=== PATIENT | male | born 1975 | race Caucasian/White ===

== ENCOUNTER 2022-05-18 13:26 | Emergency (ER) | payer MEDICAID, SELFPAY ==
[2022-05-18 15:14] VITALS: BMI 29.5
[2022-05-18 15:17] VITALS: BP 154/103; PULSE 73; RESP 18; TEMP 36.5; O2SAT 98
--- NOTE | 2022-05-18 15:34 | ED_ITS ---
HPI - Wound/Laceration General: Chief Complaint: Wound/Laceration Stated Complaint: left leg cut by chainsaw Time Seen by Provider: 05/18/22 15:23 History of Present Illness: Patient is a 46-year-old male comes to the ED with a laceration to left lower leg. Patient says he was cutting down some trees and limbs. One of the limbs came down and hit lateral posterior aspect of patient's left lower leg causing a laceration. He denies any other injuries or trauma. Bleeding was controlled with a bandage. Patient is able to ambulate on left leg without any difficulties or pain. He has full range of motion of the left foot and ankle. He currently needs an updated tetanus shot. Associated symptoms: Denies chills, fever(s), nausea or vomiting Review of Systems Const: Denies: fever(s), chills or fatigue Eyes: Denies: change in vision or eye discomfort ENMT: Denies: throat pain, odynophagia, nasal discharge or nasal congestion Card: Denies: chest pain, palpitations, edema, swelling of feet/ankles, dyspnea on exertion or orthopnea Resp: Denies: dyspnea, productive cough or non-productive cough GI: Denies: abdominal pain, nausea, vomiting, diarrhea, constipation or hematochezia : Denies: flank pain, difficulty urinating, dysuria or hematuria Musc: Denies: neck pain, back pain or extremity swelling Skin/Breast: Reports: new lesions (Laceration to left lower leg); Denies: rash Neuro: Denies: headache(s), numbness in extremities or weakness in extremities [facility] ED PFSH: Medical History No pertinent family history Surgical History No pertinent past surgical history Physical Exam Const: COMMON NORMALS: no acute distress, patient oriented x3, healthy appearing and alert GENERAL APPEARANCE: cooperative and comfortable HENMT: COMMON NORMALS: normocephalic HEAD & SCALP: normocephalic MOUTH: Normal oral and palatal mucosa present THROAT: posterior oropharynx normal and uvula midline Neck/C-Spine: COMMON NORMALS: supple GENERAL: Yes normal visual inspection Resp: COMMON NORMALS: normal respiratory effort, No retractions, No use of accessory muscles and clear to auscultation bilaterally AUSCULTATION: clear to auscultation bilaterally Cardio: COMMON NORMALS: regular rate, regular rhythm, S1 normal heart sound present, S2 normal heart sound present, No gallops present (Cardio), No clicks present (Cardio), No murmurs present (Cardio) and Peripheral pulses 2+ thr oughout RATE: regular rate RHYTHM: regular rhythm HEART SOUNDS: S1 normal heart sound present and S2 normal heart sound present PERIPHERAL PULSES: Peripheral pulses 2+ throughout GI: COMMON NORMALS: Normal to inspection, nondistended, normoactive bowel sounds present, Soft to palpation, non-tender and no masses PALPATION: Yes Soft to palpation : COMMON NORMALS: Yes no CVA tenderness BLADDER/KIDNEY EXAM: Yes no CVA tenderness Back/Pelvis: COMMON NORMALS: no CVA tenderness Extremity: NARRATIVE EXTREMITY EXAM: large superficial irregular shaped laceration measuring approximately 7 cm on left lower leg. Minimal active bleeding noted. No contaminants seen. Full range of motion in foot and ankle. Neurovascular intact distally. Neuro: COMMON NORMALS: patient oriented x3 SENSORIUM/ORIENTATION: Yes alert GAIT: Yes Normal gait present Skin: GENERAL SKIN EXAM: dry skin Procedures Laceration Laceration 1: Site: lower extremity (left lower leg) Side (If applicable): left Size (cm): 7 Description: irregular and clean Depth: simple, single layer Local Anesthetic: lidocaine 1% and with epi Amount of anesthesia used (mL): 6 Pre-repair: irrigated extensively (With normal saline and beta iodine) Skin layer closed with: nylon Size (cm): 4-0 Number of sutures: 11 Technique: simple, interrupted (3 sutures) and running (8 running sutures were placed to close laceration as well.) Course Vital Signs: Vital signs: Vital Signs Temperature 97.7 F 05/18/22 15:17 Pulse Rate 73 05/18/22 15:17 Respiratory Rate 18 05/18/22 15:17 Blood Pressure 154/103 05/18/22 15:17 Pulse Oximetry 98 05/18/22 15:17 Oxygen Delivery Me thod 05/18/22 15:17 MDM - Wound/Laceration Medical Decision Making Patient is a 46-year-old male comes to the ED with a laceration to left lower leg. Patient says he was cutting down some trees and limbs. One of the limbs came down and hit lateral posterior aspect of patient's left lower leg causing a laceration. Vitals are stable. large superficial irregular shaped laceration measuring approximately 7 cm on left lower leg. Minimal active bleeding noted. No contaminants seen. Full range of motion in foot and ankle. Neurovascular intact distally. Left tib-fib x-ray showed no acute findings or foreign bodies noted. Lidocaine 1% with epi was used as local and nurse irrigated laceration extensively with normal saline and beta iodine. 11 sutures were then placed to close laceration site. See procedure note for details. He was given updated tetanus here in the ED. He was stable for discharge home and instructed to have sutures removed in the next 10 days. He was sent home with prophylactic antibiotic prescription. Return to ED precautions given. Patient understood and agreed with plan. Lab Data Radiology Impressions Tibia/Fibula X-Ray 05/18/22 15:37 IMPRESSION: No acute osseous abnormalities. No radiopaque foreign body. Discharge Plan Discharge Patient Disposition: Home Clinical Impression: Laceration of left leg Qualifiers: Encounter type: initial encounter Qualified Code(s): S81.812A - Laceration without foreign body, left lower leg, initial encounter Condition: Stable Prescriptions: New cephalexin 500 mg capsule 500 mg PO Q6H 4 Days Qty: 16 0RF Discharge Orders: Discharge ED (Routine); Ordered 05/18/22 Ordered By: Ruperto Herron Referrals: Brian Carter FNP [Primary Care Provider] - Discharge Diet: Regular Discharge Activity: Increase activity as tolerated Patient Instructions: Laceration (DC) Activity Restrictions/Additional Instructions: Take full course of antibiotics as prescribed. Keep laceration site clean and dry. Clean daily with soap and water and then apply thin layer of triple antibiotic ointment on it and cover with bandage. Watch for signs of infection such as redness, warmth, increased tenderness and puslike drainage. If you see the signs of infection return to the ED, urgent care or PCP for reevaluation. call your PCP to schedule a follow-up appointment for reevaluation and suture removal in about 10 days. Continue taking all home meds. Follow discharge plans as discussed. You can return to the ED if symptoms worsen. Coding Level of Care Code ED [employer] Operator for Siobhan Camacho Exam Comprehensive
--- NOTE | 2022-05-18 15:37 | XRR_ITS ---
PROCEDURE INFORMATION: Exam: XR Left Tibia and Fibula Exam date and time: 05/18/2022 4:02 PM Age: 46 years old Clinical indication: Injury or trauma; Other: Chainsaw; Laceration; Lower leg; Left; Foreign body involvement not specified; Additional info: Laceration injury to lower leg TECHNIQUE: Imaging protocol: Radiologic exam of the Left tibia and fibula. Views: 2 views. COMPARISON: No relevant prior studies available. FINDINGS: Bones/joints: Osseous structures are intact. Negative for fracture. Soft tissues: Laceration noted along the lower leg. No evidence of radiopaque foreign body. XR/XR tibia fibula LT 2V [id number] IMPRESSION: No acute osseous abnormalities. No radiopaque foreign body.
[2022-05-18] MEDS: tetanus-dipt-pertussis 0.5 mL SDV IM (16:00)
--- NOTE | 2022-05-31 12:46 | PC.NURSE ---
REMOVED 8 RUNNING STITCHES AND 3 SIMPLE SUTURES PER PROVIDER DIOR VO AND DRESSED WITH STERISTRIPS.
== END 2022-05-18 17:09 | disposition home or self-care (01) ==
PROVIDERS: Emergency Provider Physician Assistant; PCP Nurse Practitioner Family
DX: S81.812A Laceration without foreign body, left lower leg, initial encounter (principal); W20.8XXA Other cause of strike by thrown, projected or falling object, initial encounter; Z23 Encounter for immunization
CPT/HCPCS: 12002; 73590; 90471; 90715; 99283

== ENCOUNTER → 2023-03-17 10:54 | Outpatient (BNVA) | payer MEDICAID, SELFPAY | PROVIDERS: PCP Nurse Practitioner Family; Referring Provider Nurse Practitioner Occupational Health; Visit Provider Surgery | DX: Z01.812 Encounter for preprocedural laboratory examination (principal); K82.9 Disease of gallbladder, unspecified; Z51.81 Encounter for therapeutic drug level monitoring; Z79.1 Long term (current) use of non-steroidal anti-inflammatories (NSAID); R10.9 Unspecified abdominal pain; K76.0 Fatty (change of) liver, not elsewhere classified | CPT/HCPCS: 36415; 80048; 80076; 83690; 85025 ==

== ENCOUNTER 2023-04-05 09:52 | Outpatient (CLI) | payer MEDICAID, SELFPAY ==
--- NOTE | 2023-04-05 10:00 | NM_ITS ---
WS: [id number] NUCLEAR MEDICINE HIDA SCAN WITH GALLBLADDER EJECTION FRACTION HISTORY: gallbladder problem COMPARISON: None available. TECHNIQUE: The patient was intravenously injected with 7.7 mCi of TC99m Mebrofenin. Immediate imaging over the right upper quadrant was followed by 5 minute image and additional images for a total of 60 minutes. Normal uptake of radiotracer throughout the liver. Activity identified in the gallbladder at 15 minutes and well distended by 60 minutes. Activity in the proximal small bowel was seen by 40 minutes. Good washout of the radiotracer from the liver by 60 minutes. The patient then drank 8 ounces of Ensure Plus. Ejection fraction at 60 minutes was 79%. Normal GB ej ection fraction is 35-75%. Post fatty meal symptoms: None. IMPRESSION: 1. Normal HIDA scan. 2. Normal gallbladder ejection fraction.
== END 2023-04-05 09:53 | disposition home or self-care (01) ==
LOC: RAD 09:53
PROVIDERS: PCP Nurse Practitioner Family; Visit Provider Surgery
DX: Z01.812 Encounter for preprocedural laboratory examination (principal); K82.9 Disease of gallbladder, unspecified
CPT/HCPCS: 78227; A9537

== ENCOUNTER → 2023-04-10 11:58 | Outpatient (BNVA) | payer MEDICAID, SELFPAY | PROVIDERS: PCP Nurse Practitioner Family; Referring Provider Specialist; Visit Provider Specialist | DX: G61.82 Multifocal motor neuropathy (principal) | CPT/HCPCS: 83520 ==

== ENCOUNTER 2023-05-23 08:46 | Day surgery (SDC) | payer MEDICAID, SELFPAY ==
--- NOTE | 2023-05-23 09:03 | P.HPUD_ITS ---
Surgery/Procedure H&P Update DATE OF PROCEDURE: May 23, 2023 DATE H&P PERFORMED: 05/08/23 H&P UPDATE INFORMATION: I have reviewed H&P completed within last 30 days, I have examined patient prior to procedure, No changes to prior documentation and H&P is in [facility] EMR on date indicated PLANNED PROCEDURE: Operation Date: 05/23/23 10:00 Proposed Procedures p [id number] egd [id number] colon, G0121 screen colon A risk R10.9,Z12.11(Not Applicable) - Flaco Dai MD s Colonoscopy(Not Applicable) - Flaco Dai MD
[2023-05-23 09:08] VITALS: BP 116/89; PULSE 71; RESP 18; TEMP 36.6; O2SAT 98; BMI 28.2
--- NOTE | 2023-05-23 09:18 | P.ANESASSM_ITS ---
Pre-Anesthetic Assessment Height/Weight: Height 1.75 m Weight 86.636 kg Temp Pulse Resp BP Pulse Ox O2 Del Method 97.8 F 71 18 116/89 98 Room Air 05/23/23 09:08 05/23/23 09:08 05/23/23 09:08 05/23/23 09:08 05/23/23 09:08 05/23/23 09:08 Operation Date: 05/23/23 10:00 Proposed Procedures p 51283 egd 61671 colon, G0121 screen colon A risk R10.9,Z12.11(Not Applicable) - Flaco Dai MD s Colonoscopy(Not Applicable) - Flaco Dai MD Familial anesthetic complications: None Was Beta Nereida taken within 24 hours: N/A Was Clonidine taken within 24 hours: N/A Last intake: Intake Last Liquid Date 05/22/23 Last Liquid Time 22:00 Last Solid Date 05/22/23 Last Solid Time 07:45 Social Tobacco (chewed tobacco at 0800) and No alcohol Exam alert, oriented x 3, clear to auscultation bilaterally and regular rate & rhythm Airway Mallampati: Class II Dentition: full Comments: Comments: full sood Neuropsych Neuropathy Anesthetic Plan ASA status: 3 Anesthesia: MAC Risk of > 500 ml blood loss (7ml/kg in children): No Medications/Allergies Home Medications Medication Instructions Recorded Confirmed Last Taken Type aspirin 81 mg tablet,delayed 81 mg PO DAILY 03/17/23 05/19/23 05/18/23 History release (Adult Low Dose Aspirin) multivitamin 1 tab PO DAILY 03/17/23 05/19/23 05/22/23 History omeprazole magnesium 20 mg 20 mg PO DAILY 03/17/23 05/19/23 05/22/23 History tablet,delayed release (Prilosec OTC) loratadine-pseudoephedrine ER 10 1 tab PO DAILY 05/19/23 05/19/23 05/22/23 History mg-240 mg tablet,extended [id number] (Claritin-D 24 Hour) Allergies Allergy/AdvReac Type Severity Reaction Status Date / Time No Known Allergies Allergy Verified 05/19/23 12:37 [facility] Anesthesia Medical History No pertinent family history Surgical History No pertinent past surgical history Social History Smoking and tobacco/nicotine status: never used tobacco/nicotine Alcohol intake: former Data Anesthesia Cardiac Studies: No Data to Display
[2023-05-23] MEDS: sodium chloride 0.9% 1,000 ML 30 ML IV (11:39)
[2023-05-23 12:17] VITALS: BP 90/66; PULSE 56; RESP 18; TEMP 36.8; O2SAT 96
[2023-05-23 12:32] VITALS: BP 102/74; PULSE 61; RESP 18; O2SAT 96
--- NOTE | 2023-05-23 12:55 | ANE.PACU2 ---
Inpatient post-anesthesia follow up: Airway intact: Yes Vital signs: Temperature 98.2 F Pulse Rate 61 Respiratory Rate 18 Blood Pressure 102/74 Pulse Oximetry 96 Oxygen Delivery Me thod Room Air Oxygen Flow Rate Fraction of Inspir ed Oxygen Hydration adequate: Yes Nausea and vomiting: No Pain level: 1 Mental status: Baseline
== END 2023-05-23 12:59 | disposition home or self-care (01) ==
PROVIDERS: PCP Nurse Practitioner Family; Visit Provider Surgery
PROC: 0DJ08ZZ Inspection of Upper Intestinal Tract, Via Natural or Artificial Opening Endoscopic (ICD-10-PCS; CPT 43235; principal; 2023-05-23 10:00)
PROC: 0DJD8ZZ Inspection of Lower Intestinal Tract, Via Natural or Artificial Opening Endoscopic (ICD-10-PCS; CPT 45378; 2023-05-23 10:00)
DX: Z12.11 Encounter for screening for malignant neoplasm of colon (principal); R10.9 Unspecified abdominal pain; G89.29 Other chronic pain; K29.50 Unspecified chronic gastritis without bleeding; K63.5 Polyp of colon; Z79.82 Long term (current) use of aspirin
CPT/HCPCS: 43239; 45380; 88305; 88342; J2704; J3010; J7030

== ENCOUNTER 2023-09-12 08:29 | Outpatient (CLI) | payer MEDICAID, SELFPAY ==
--- NOTE | 2023-09-12 08:37 | CTR_ITS ---
PROCEDURE INFORMATION: Exam: CT Abdomen And Pelvis With Contrast Exam date and time: 09/12/2023 9:40 AM Age: 47 years old Clinical indication: Abdominal pain; Generalized; Patient HX: Bloating, oily bowl movements x 2-4 years. ; Additional info: Unspecified abdominal pain TECHNIQUE: Imaging protocol: Computed tomography of the abdomen and pelvis with contrast. Radiation optimization: All CT scans at this facility use at least one of these dose optimization techniques: automated exposure control; mA and/or kV adjustment per patient size (includes targeted exams where dose is matched to clinical indication); or iterative reconstruction. Contrast material: OMNI 350; Contrast volume: 95 ml; Contrast route: INTRAVENOUS (IV); COMPARISON: NM hepatobiliary w phar* [id number] 04/05/2023 10:00 AM RADIATION DOSE METRICS: Total DLP (mGy-cm): 612.66 FINDINGS: Liver: Hepatic steatosis. Gallbladder and bile ducts: Normal. No calcified stones. No ductal dilation. Pancreas: Normal. No ductal dilation. Spleen: Normal. No splenomegaly. Adrenal glands: Normal. No mass. Kidneys and ureters: Small renal cysts. Stomach and bowel: Unremarkable. No obstruction. No mucosal thickening. Appendix: No evidence of appendicitis. Intraperitoneal space: Unremarkable. No free air. No significant fluid collection. Vasculature: Unremarkable. No abdominal aortic aneurysm. Lymph nodes: Unremarkable. No enlarged lymph nodes. Urinary bladder: Unremarkable as visualized. Reproductive: Unremarkable as visualized. Bones/joints: Unremarkable. No acute fracture. Soft tissues: Unremarkable. CT/CT abdomen pelvis w con* [id number] IMPRESSION: No acute findings. COMMENTS: Consistent with the [employer] [employer]'s Incidental Findings Committee white paper (J Am Sangita Radiol 2018): Any incidental renal lesion less than 1 cm or classified as too small to characterize, or any incidental cystic renal lesion characterized as simple-appearing, is likely benign. No follow-up imaging is recommended for these lesions per consensus recommendations based on imaging criteria.
[2023-09-12] MEDS: iohexol 350 mg/mL 500 mL Btl (per mL) PO (09:28)
[2023-09-12] MEDS: iohexol 350 mg/mL 500 mL Btl (per mL) IV (09:41)
== END 2023-09-12 08:30 | disposition home or self-care (01) ==
LOC: RAD 08:29
PROVIDERS: PCP Nurse Practitioner Family; Visit Provider Nurse Practitioner
DX: R10.84 Generalized abdominal pain (principal); R19.5 Other fecal abnormalities; R14.0 Abdominal distension (gaseous); K76.0 Fatty (change of) liver, not elsewhere classified
CPT/HCPCS: 74177; Q9967

== ENCOUNTER 2023-12-29 16:32 | Outpatient (CLI) | payer MEDICAID, SELFPAY ==
--- NOTE | 2023-12-29 16:41 | US_ITS ---
WS: [id number] INDICATION: Enlarged lymph nodes TECHNIQUE: Ultrasound soft tissue neck FINDINGS: Ultrasound soft tissue neck. No abnormalities in the area of neck swelling bilaterally. No visualized lymphadenopathy. No cystic or solid lesions. US/US soft tissue head neck [id number] IMPRESSION: Normal soft tissue ultrasound
== END 2023-12-29 16:33 | disposition home or self-care (01) ==
PROVIDERS: PCP Nurse Practitioner Family; Visit Provider Nurse Practitioner Occupational Health
DX: R59.9 Enlarged lymph nodes, unspecified (principal)
CPT/HCPCS: 76536

== ENCOUNTER 2024-02-02 10:32 | Outpatient (CLI) | payer MEDICAID, SELFPAY ==
--- NOTE | 2024-02-02 10:45 | CT_ITS ---
WS: [id number] CT NECK WITH CONTRAST HISTORY: DYSPHAGIA TECHNIQUE: Contiguous 2 mm axial images are performed through the neck with intravenous contrast. Sag ittal and coronal reformats are also submitted. All CT scans at [facility] use at least one o f these dose optimization techniques: automated exposure control; mA and/or kV adjustment per patient size (includes targeted exams where dose is matched to clinical indication); or iterative reconstruc tion. CONTRAST: CONTRAST: Omnipaque 350; 100 mL IV. DLP: 193.59 mGy.cm COMPARISON: None available. Nasopharynx, oropharynx, hypopharynx and larynx are unremarkable. No soft tissue masses or abnormal e nhancement. Torus tubarius and fossa of Rosenmuller and parapharyngeal fat are normal. No significant lymphadenopathy is identified. Thyroid gland and salivary glands are normally enhancing with no masses. No osseous abnormalities. Visualized portions of the skull base demonstrate no abnormalities. Orbits and globes are within norm al limits. No soft tissue masses. Visualized paranasal sinuses and mastoid air cells are normal. Lung apices are clear. CT/CT neck w con* [id number] IMPRESSION: 1. No laryngeal mass identified. 2. No lymphadenopathy along the cervical chains. 3. If patient's symptoms persist direct visualization of the hypopharynx and l arynx may be of benefit.
[2024-02-02] MEDS: iohexol 350 mg/mL 500 mL Btl (per mL) IV (11:22)
== END 2024-02-02 10:33 | disposition home or self-care (01) ==
LOC: RAD 10:32
PROVIDERS: PCP Nurse Practitioner Family; Visit Provider Nurse Practitioner Occupational Health
DX: R13.10 Dysphagia, unspecified (principal)
CPT/HCPCS: 70491; Q9967

== ENCOUNTER 2024-02-06 10:04 | Outpatient (CLI) | payer MEDICAID, SELFPAY ==
[2024-02-06 10:26] VITALS: PULSE 79; RESP 18; O2SAT 98
[2024-02-06 10:30] VITALS: PULSE 82
[2024-02-06] MEDS: albuterol 2.5 mg/3 mL Neb INHALATION (10:35)
== END 2024-02-06 10:05 | disposition home or self-care (01) ==
LOC: RT 10:06
PROVIDERS: PCP Nurse Practitioner Family; Visit Provider Nurse Practitioner Occupational Health
DX: R05.3 Chronic cough (principal)
CPT/HCPCS: 94060; J7613

== ENCOUNTER → 2024-03-06 14:29 | Outpatient (BNVA) | payer MEDICAID, SELFPAY | PROVIDERS: PCP Nurse Practitioner Family; Visit Provider Internal Medicine | DX: R07.9 Chest pain, unspecified (principal); R55 Syncope and collapse; R06.02 Shortness of breath; R06.09 Other forms of dyspnea; I10 Essential (primary) hypertension; R00.2 Palpitations; F17.200 Nicotine dependence, unspecified, uncomplicated | CPT/HCPCS: 93005 ==

== ENCOUNTER 2024-03-27 13:17 | Outpatient (CLI) | payer MEDICAID, SELFPAY ==
--- NOTE | 2024-03-27 13:45 | MR_ITS ---
WS: [id number] MRI LUMBAR SPINE NONCONTRAST TECHNIQUE: Sagittal T1, T2 and STIR imaging. Axial T1 and T2 imaging. CLINICAL INFORMATION: M54.16 - Radiculopathy, lumbar region COMPARISON: None. FINDINGS: Lumbar scoliosis convex LEFT. No acute compression. No high-grade central canal stenosis. Disc space narrowing worse at L5-S1. L1-L2: Minimal disc osteophyte complex with mild RIGHT foraminal narrowing. Mild facet arthropathy. L EFT foramen is patent. L2-L3: Mild disc bulging with slight narrowing the RIGHT subarticular recess. Moderate facet arthropa thy. Mild RIGHT foraminal narrowing. L3-L4: No significant disc bulging. Mild RIGHT and no significant LEFT foraminal narrowing. Moderate facet arthropathy. L4-L5: Mild annular bulging. Moderate facet arthropathy. Mild bilateral foraminal narrowing. L5-S1: LEFT eccentric disc osteophyte complex with moderate LEFT foraminal narrowing. RIGHT foramen i s patent. Moderate facet arthropathy. Visualized pelvic bony structures: Normal. Paravertebral soft tissues: Normal. Small renal cysts. MR/MR lumbar spine wo con* [id number] IMPRESSION: 1. Lumbar scoliosis. No acute compression. No high-grade central canal stenosi s. 2. Mild to moderate bony foraminal narrowing worse at RIGHT L2-3, RIGHT L3-4, and bilateral L4-5. 3. Moderate LEFT L5-S1 bony foraminal narrowing impinges the exiting LEFT L5 n erve root.
== END 2024-03-27 13:18 | disposition home or self-care (01) ==
LOC: RAD 13:18
PROVIDERS: PCP Nurse Practitioner Family; Visit Provider Specialist
DX: M54.16 Radiculopathy, lumbar region (principal); M47.896 Other spondylosis, lumbar region; M25.78 Osteophyte, vertebrae; M99.64 Osseous and subluxation stenosis of intervertebral foramina of sacral region
CPT/HCPCS: 72148

== ENCOUNTER 2024-04-12 08:51 | Outpatient (CLI) | payer MEDICAID, SELFPAY ==
--- NOTE | 2024-04-12 | ECG_ITS ---
[facility] Test Date: 2024-04-12 Pat Name: Victorino Lees Department: Room: Gender: Male [employer]: : 1975 Requested By: Joey Bledsoe Order Number: [id number] Wilson MD: Joey Bledsoe M.D. Interpretive Statements EXERCISE STRESS TEST EXERCISE DATA: The patient was exercised by Mau protocol. Baseline heart rate was 85 beats per minute. Baseline blood pressure was 122/86 millimeters of mercury. Maximal predicted heart rate was 174 beats per minute. Maximum heart rate achieved was 126 which was 72% of the maximum predicted heart rate. Maximum blood pressure was 160/56 millimeters of mercury. Total exercise time was 9 minutes 1 second. Maximum METs achieved was 10.2. The reason for ending the test was maximal effort achieved however target heart rate not achieved because of symptoms. The patient complained of shortness of breath during the stress test, which then resolved at the end of the test. ELECTROCARDIOGRAM: BASELINE: Showed sinus rhythm, normal axis, no significant ST-T changes at the baseline noted. [] EXERCISE: At the peak exercise level, [] No significant ST-T changes suggestive of ischemia noted. [] RECOVERY: During the recovery period, heart rate dropped appropriately. No significant ST-T changes in the recovery suggestive of ischemia noted. [] CONCLUSION: 1. Exercise capacity is good 2. Heart rate response was suboptimal 3. Blood pressure response was appropriate. 4. Symptoms not suggestive of ischemia. 5. Stress test is non-diagnostic as patient could not reach target heart rate. Recommend alternative stress testing with imaging to rule out ischemia. Electronically Signed On 04-19-2024 20:50:24 CDT by Joey Bledsoe M.D. [id number]
--- NOTE | 2024-04-12 09:15 | USCV_ITS ---
Victorino Lees Age: 48 Gender: M : 1975 Exam Date: 04/12/2024 09:12 Ordering Phys: Joey Bledsoe M.D ([email or web address]) Technologist: CT Exam Location: [facility] [place] Indication: cp BP: 120 / 70 HR: 62 Rhythm: Sinus Technical Quality: Adequate MEASUREMENTS (Male / Female) Normal Values 2D ECHO LVOT Diameter 2.1 cm LV Ejection Fraction MOD 4C 63.1 % LV Ejection Fraction MOD 2C 63.7 % LV Ejection Fraction 2C AL 67.3 % LA Diameter 2.9 cm RA Systolic Volume 4C AL 33.3 ml RA Systolic Volume 4C MOD 32.9 ml LA Sys Volume AL 47.1 cm cubed LA Sys Volume Index AL 22.1 cm cubed/m squared Aorta at Sinotubular Diameter 2.6 cm M-MODE LA Ao Ratio MM 0.8 AV Cusp Separation MM 2.3 cm DOPPLER AV Peak Velocity 238.7 cm/s LVOT Peak Velocity 108.0 cm/s AV Area Cont Eq vti 2.8 cm squared AV Area Cont Eq pk 1.5 cm squared MV Peak Velocity 103.0 cm/s MV Area PHT 2.8 cm squared Mitral E to A Ratio 1.1 Right Atrial Pressure 3.0 mmHg PV Peak Velocity 107.0 cm/s FINDINGS Left Ventricle Normal left ventricular cavity size. Normal left ventricular systolic function. Left ventricular ejection fraction is estimated at 60 %. Normal diastolic function. Right Ventricle The right ventricle is normal in size and function. Right Atrium The right atrium is normal in size. Left Atrium The left atrium is normal in size. Mitral Valve Mildly thickened mitral valve. No mitral valve stenosis. Trace mitral valve regurgitation. Aortic Valve Mild aortic valve calcification. No aortic valve stenosis. Mild aortic valve regurgitation. Tricuspid Valve Structurally normal tricuspid valve without significant stenosis or regurgitation. Pulmonary artery systolic pressure is normal. Pulmonic Valve Structurally normal pulmonic valve without significant stenosis. There is no pulmonic regurgitation. Pericardium Normal pericardium without effusion. Aorta Normal ascending aorta dimension. IVC The inferior vena cava appears normal. CONCLUSIONS Normal left ventricular cavity size. Normal left ventricular systolic function. Left ventricular ejection fraction is estimated at 60 %. Normal diastolic function. Mildly thickened mitral valve. No mitral valve stenosis. Trace mitral valve regurgitation. Mild aortic valve calcification. No aortic valve stenosis. Mild aortic valve regurgitation. Structurally normal tricuspid valve without significant stenosis or regurgitation. Pulmonary artery systolic pressure is normal. There is no pericardial effusion. Right atrial pressure is around 5 mm of mercury. Jesusita Lomas MD (Electronically Signed) Final Date: 13 April 2024 15:01 S
[2024-04-12 09:45] VITALS: BMI 29.8
[2024-04-12 11:32] VITALS: BP 114/59; PULSE 68
== END 2024-04-12 08:52 | disposition home or self-care (01) ==
PROVIDERS: PCP Nurse Practitioner Family; Visit Provider Internal Medicine
DX: R07.9 Chest pain, unspecified (principal); R06.02 Shortness of breath
CPT/HCPCS: 93017; 93306

== ENCOUNTER 2024-08-02 15:31 | Emergency (ER) | payer MEDICAID, SELFPAY ==
[2024-08-02 15:47] VITALS: BP 132/87; PULSE 83; RESP 16; TEMP 36.5; O2SAT 99
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
[2024-08-02 17:09] VITALS: BP 138/71; PULSE 88; O2SAT 98
== END 2024-08-02 17:09 | disposition home or self-care (01) ==
PROVIDERS: Emergency Provider Physician Assistant; PCP Nurse Practitioner Family
DX: S01.81XA Laceration without foreign body of other part of head, initial encounter (principal); X58.XXXA Exposure to other specified factors, initial encounter; Z87.891 Personal history of nicotine dependence
CPT/HCPCS: 12051; 99283

== ENCOUNTER 2024-08-09 12:14 | Emergency (ER) | payer MEDICAID, SELFPAY ==
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
[2024-08-09 12:25] VITALS: BP 122/91; PULSE 88; RESP 16; TEMP 36.7; O2SAT 100
[2024-08-09 12:31] VITALS: BP 122/91; PULSE 88; RESP 16; TEMP 36.7; O2SAT 100
== END 2024-08-09 12:27 | disposition home or self-care (01) ==
PROVIDERS: Emergency Provider Emergency Medicine; PCP Nurse Practitioner Family
DX: Z48.02 Encounter for removal of sutures (principal); Z79.82 Long term (current) use of aspirin; Z87.891 Personal history of nicotine dependence
CPT/HCPCS: 99281

== ENCOUNTER → 2024-11-20 12:46 | Outpatient (BNVA) | payer MEDICARE, MEDICAID, SELFPAY | PROVIDERS: PCP Family Medicine; Visit Provider Specialist | DX: G61.82 Multifocal motor neuropathy (principal); M54.16 Radiculopathy, lumbar region; G47.10 Hypersomnia, unspecified; E78.00 Pure hypercholesterolemia, unspecified | CPT/HCPCS: 36415; 80053; 82550; 84439; 84443; 85025; 99215 ==

== ENCOUNTER 2024-11-28 09:38 | Outpatient (CLI) | payer MEDICARE, MEDICAID, SELFPAY ==
--- NOTE | 2024-11-28 10:00 | FL_ITS ---
WS: [id number] Gastrografin swallow and esophagram, 11/28/2024 Clinical Data: Neck swelling and difficulty swallowing solids and liquids for several months. Comparison: None. Fluoroscopy time: 1min [id number] # of spot films: 4 Findings: The patient swallowed the Gastrografin, and it flowed through the hypopharynx without hesitation. No stricture, mass, polyp or erosion was seen. No aspiration or penetration occurred. The Gastrografin entered the esophagus and there was normal motility throughout. No hiatal hernia, reflux, stricture, polyp, mass, erosion or ulcer was noted. The Gastrografin flowed into the stomach promptly. FL/FL barium swallow gastro [id number] Impression: Normal esophagram.
== END 2024-11-28 09:39 | disposition home or self-care (01) ==
PROVIDERS: PCP Family Medicine; Visit Provider Family Medicine
DX: R13.10 Dysphagia, unspecified (principal)
CPT/HCPCS: 74220

== ENCOUNTER → 2024-12-03 15:32 | Outpatient (BNVA) | payer MEDICARE, MEDICAID, SELFPAY | PROVIDERS: PCP Family Medicine; Visit Provider Orthopaedic Surgery | DX: M54.16 Radiculopathy, lumbar region (principal); M54.41 Lumbago with sciatica, right side; G89.29 Other chronic pain | CPT/HCPCS: 72110; 99204 ==

== ENCOUNTER 2024-12-16 11:53 | Outpatient (RCR) | payer MEDICARE, SELFPAY | END 2025-01-06 23:59 | disposition home or self-care (01) | LOC: SPT 11:53 | PROVIDERS: Visit Provider Orthopaedic Surgery | DX: M54.9 Dorsalgia, unspecified (principal); G89.29 Other chronic pain; G61.82 Multifocal motor neuropathy; G61.81 Chronic inflammatory demyelinating polyneuritis; M54.16 Radiculopathy, lumbar region | CPT/HCPCS: 97110; 97162; 99204 ==

== ENCOUNTER → 2024-12-18 13:50 | Outpatient (BNVA) | payer MEDICARE, SELFPAY | PROVIDERS: PCP Family Medicine; Visit Provider Internal Medicine | DX: I10 Essential (primary) hypertension (principal); R06.09 Other forms of dyspnea; Z79.82 Long term (current) use of aspirin | CPT/HCPCS: 99213 ==

== ENCOUNTER → 2024-12-24 08:07 | Outpatient (BNVA) | payer MEDICARE, MEDICAID, SELFPAY | PROVIDERS: PCP Family Medicine; Referring Provider Specialist; Visit Provider Specialist | DX: G61.82 Multifocal motor neuropathy (principal) | CPT/HCPCS: 95913 ==

== ENCOUNTER 2025-01-07 05:00 | Outpatient (RCR) | payer MEDICARE, SELFPAY | END 2025-02-06 23:59 | disposition home or self-care (01) | LOC: SPT 05:00 | PROVIDERS: PCP Family Medicine; Visit Provider Orthopaedic Surgery | DX: M54.9 Dorsalgia, unspecified (principal); G89.29 Other chronic pain; G61.82 Multifocal motor neuropathy; G61.81 Chronic inflammatory demyelinating polyneuritis; M54.16 Radiculopathy, lumbar region | CPT/HCPCS: 97110 ==

== ENCOUNTER 2025-01-13 13:29 | Outpatient (CLI) | payer MEDICARE, SELFPAY | END 2025-01-13 13:30 | disposition home or self-care (01) | LOC: SLEEP 13:30 | PROVIDERS: PCP Family Medicine; Referring Provider Specialist; Visit Provider Internal Medicine Pulmonary Disease | DX: G47.33 Obstructive sleep apnea (adult) (pediatric) (principal); M54.16 Radiculopathy, lumbar region; G61.82 Multifocal motor neuropathy | CPT/HCPCS: G0399 ==

== ENCOUNTER 2025-02-07 05:00 | Outpatient (RCR) | payer MEDICARE, SELFPAY | END 2025-02-18 11:26 | disposition home or self-care (01) | LOC: SPT 05:00 | PROVIDERS: PCP Family Medicine; Visit Provider Orthopaedic Surgery | DX: M54.9 Dorsalgia, unspecified (principal); G89.29 Other chronic pain; G61.82 Multifocal motor neuropathy; G61.81 Chronic inflammatory demyelinating polyneuritis; M54.16 Radiculopathy, lumbar region | CPT/HCPCS: 97110 ==

== ENCOUNTER → 2025-03-06 13:47 | Outpatient (BNVA) | payer MEDICARE, SELFPAY | PROVIDERS: PCP Family Medicine; Visit Provider Orthopaedic Surgery | DX: M54.16 Radiculopathy, lumbar region (principal); M41.86 Other forms of scoliosis, lumbar region | CPT/HCPCS: 99213 ==

== ENCOUNTER → 2025-03-19 15:32 | Outpatient (BNVA) | payer MEDICARE, SELFPAY | PROVIDERS: PCP Family Medicine; Visit Provider Specialist | DX: G61.82 Multifocal motor neuropathy (principal); M54.16 Radiculopathy, lumbar region; G47.10 Hypersomnia, unspecified; R10.13 Epigastric pain | CPT/HCPCS: 99214 ==

== ENCOUNTER 2025-04-04 12:32 | Outpatient (CLI) | payer MEDICARE, SELFPAY ==
--- NOTE | 2025-04-04 13:00 | MR_ITS ---
WS: [id number] MRI THORACIC SPINE noncontrast HISTORY: M79.2 - Neuralgia and neuritis, unspecified COMPARISON: None available. TECHNIQUE: Multiplanar sequences are performed in sagittal and axial planes. Long curvature scoliosis thoracic spine to the RIGHT. No acute thoracic spine fractures. Disc spaces are narrowed in the mid thoracic spine. Hemangiomas at T2, T8 and T11. No cord compression. No cord signal abnormalities. No enlargement or atrophy. T1-2: Bilateral facet arthritis. T2-3: Mild RIGHT foraminal stenosis. T3-4: Mild bilateral foraminal stenosis and facet arthritis. T4-5: Normal. T5-6: Normal. T6-7: Mild bilateral foraminal stenosis and facet arthritis. T7-8: Mild foraminal stenosis. T8-9: Mild foraminal stenosis and facet arthritis. T9-10: Moderate bilateral facet arthritis, greater on the LEFT. LEFT facet joint arthropathy encroaching upon the LEFT lateral thecal sac. Moderate bilateral foraminal stenosis. T10-11: Asymmetric facet joint arthropathy, greatest on the LEFT. Moderate LEFT and mild RIGHT foraminal stenosis. T11-12: Moderate bilateral facet joint arthritis and foraminal stenosis. Paravertebral soft tissues are negative. MR/MR thoracic spin wo con* [id number] IMPRESSION: 1. Long curvature scoliosis thoracic spine. 2. No acute thoracic spine fractures. 3. Multilevel facet joint arthropathy is mild to moderate. Most significant at T9-10, T10-11 and T11-12. 4. Moderate bilateral foraminal stenosis at T9-10 and T11-12 and on the LEFT a t T10-11.
== END 2025-04-04 12:33 | disposition home or self-care (01) ==
LOC: RAD 12:37
PROVIDERS: PCP Family Medicine; Visit Provider Specialist
DX: M79.2 Neuralgia and neuritis, unspecified (principal)
CPT/HCPCS: 72146

== ENCOUNTER → 2025-06-16 08:07 | Outpatient (BNVA) | payer MEDICARE, SELFPAY | PROVIDERS: PCP Family Medicine; Visit Provider Specialist | DX: G61.82 Multifocal motor neuropathy (principal); M54.16 Radiculopathy, lumbar region; G47.10 Hypersomnia, unspecified; R10.13 Epigastric pain; R03.0 Elevated blood-pressure reading, without diagnosis of hypertension | CPT/HCPCS: 99214 ==